=== PATIENT | female | born 1965 | race Two or more races ===

== ENCOUNTER → 2024-09-12 | Outpatient (CLI) | payer BC, SELFPAY ==
[2024-09-12 10:26] LABS: Basophils # (Auto) 0.1 Thou/mm3 (0.0-0.2); Basophils % (Auto) 1 % (0-2.5); Eosinophils # (Auto) 0.1 Thou/mm3 (0.0-0.5); Eosinophils % (Auto) 1 % (0-10); Hematocrit 37.6 % (36.0-46.0); Hemoglobin 12.5 g/dL (12.0-16.0); Immature Granulocytes % (Auto) 0 % (0-0); Immature Granulocytes Auto 0.01 Thou/mm3 (0.00-0.00); Lymphocytes % (Auto) 35 % (10-50); Mean Corpuscular HGB Conc 33.2 g/dl (31.0-37.0); Mean Corpuscular Hemoglobin 27.2 pg (25.0-35.0); Mean Corpuscular Volume 82 fL (80-100); Monocytes # (Auto) 0.5 Thou/mm3 (0.0-0.8); Monocytes % (Auto) 6 % (0-12); Neutrophils # (Auto) 4.7 Thou/mm3 (1.8-7.7); Neutrophils % (Auto) 56 % (37-80); Nucleated Red Blood Cell % 0 /100 WBC (0); Platelet Count 394 Thou/mm3 (140-440); RDW Standard Deviation 38.2 fL (36.4-46.3); White Blood Count 8.3 Thou/mm3 (3.6-11.0)
[2024-09-12 10:33] LABS: Glucose Estimated Average 137 mg/dL (80-131); Hemoglobin A1C 6.4 % Hgb (4.8-6.0)
[2024-09-12 10:48] LABS: Alanine Aminotransferase 24 U/L (10-49); Albumin, Serum 4.7 gm/dL (3.4-4.8); Albumin/Globulin Ratio 1.7 (1.2-2.2); Alkaline Phosphatase 113 U/L (46-116); Anion Gap 10 (7-16); Aspartate Amino Transferase 21 U/L (0-34); BUN/Creatinine Ratio 27 Ratio (12-20); Bilirubin,Total 0.3 mg/dL (0.3-1.2); Blood Urea Nitrogen 19 mg/dL (9-23); Calcium 9.8 mg/dL (8.3-10.6); Calcium (Corrected) 9.8 mg/dL (8.5-10.1); Carbon Dioxide 25.7 mMol/L (20.0-31.0); Chloride 105 mMol/L (98-107); Creatinine (Component) 0.7 mg/dL (0.6-1.3); Globulin 2.7 gm/dL (2.3-3.5); Glucose 113 mg/dL (74-106); Osmolality,Calculated 284 (275-295); Sodium 141 mMol/L (136-145); Total Protein 7.4 gm/dL (5.7-8.2); eGFR > 60 See Note
== END | disposition home or self-care (01) ==
PROVIDERS: PCP Family Medicine; Referring Provider Family Medicine; Visit Provider Family Medicine
DX: M54.31 Sciatica, right side (principal); E11.65 Type 2 diabetes mellitus with hyperglycemia; D50.8 Other iron deficiency anemias
CPT/HCPCS: 36415; 80053; 83036; 85025

== ENCOUNTER 2024-10-04 02:37 | Emergency (ER) | payer BC, SELFPAY ==
[2024-10-04 02:37] VITALS: BMI 25.4
[2024-10-04 02:49] VITALS: BP 121/74; PULSE 85; RESP 16; TEMP 36.8; O2SAT 97
--- NOTE | 2024-10-04 02:49 | PD.EDDIZZY ---
ED Dizzyness RME/HPI General Chief Complaint: Dizziness Stated Complaint: DIZZINESS Time Seen by Provider: 10/04/24 02:49 Arrival date/time: 10/04/24 02:37 RME / HPI RME / HPI Narrative: This section includes all my notes and documentations, including HPI, PE, and ED course. Toñito Dewitt MD HPI: 59yo female with a history of DM presents to the ED for a chief complaint of dizziness x 2 days. 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 Patient endorses having a history of vertigo and takes meclizine, but states she's been taking it without any alleviation of symptoms. She states her dizziness persisted, so she came in for evaluation. She denies any fever, chills, cough or any other associated symptoms. No other complaints reported. ROS: All negative except as documented in HPI. Physical Exam: General: Alert and oriented. Appearance of malaise noted. Eyes: Conjunctivae and lids clear. PERRL. EOMI. ENT: No nasal congestion. Neck: Supple. Heart: RRR. Lungs: No respiratory distress. Good air movement. No rhonchi, wheezing, rales. Abdomen: Soft and nontender. Legs: No clubbing, cyanosis, edema. Skin: Warm and dry. Neuro: Alert and oriented X 3. Cranial nerves II to XII grossly normal. No peripheral motor deficits. I reviewed all diagnostic test results. My interpretation of the EKG is sinus rhythm with no ST?T changes. My review of the head CT report is no acute findings. Blood tests unremarkable. UA showed no bacteria but WBC with no epithelial cells. At this point, diagnoses include vertigo with early UTI. Treatment here included Zofran and meclizine and scopolamine patch. Significant improvement noted. Recommended a trial of outpatient treatment. Based on my best medical judgment, made decision no further evaluation or treatment indicated at this time. Patient understands and agrees to the discharge instructions customized and printed, see below. Discharge instructions from Dr. Dewitt: ? After extensive evaluation, there is no life-threatening condition.? Such as stroke or brain tumor or heart attack. -- Your severe symptoms are due to vertigo.? This is an inner ear problem that makes you feel like you are drunk or seasick.? See attached handout. -- Use scopolamine patch and/or meclizine for your severe symptoms. -- And Zofran for nausea/vomiting.? And increase oral fluid to prevent dehydration.? Maintain clear urine.? If dark or yellow, increase oral fluid. -- And do everything very slowly.? Including moving your head.? And when you sit up or stand up, wait a minute before you progress.? -- Your urine showed no bacteria but white blood cells, so take cefdinir for 3 days. -- See your private doctor on 10/08/2024 if not completely better. -- Seek immediate medical care with worsening or with any concerns. Toñito Dewitt MD Related Data Home Medications ?Medication ?Instructions ?Recorded ?Confirmed Promethazine/Codeine SYRUP * 5 ml PO Q4HR PRN COUGH OR 03/31/17 (PHENERGAN WITH CODEINE SYRUP *) CONGESTION #0 mL Sulfamethoxazole/Trimethoprim 1 tab PO QDAY ##0 03/31/17 (Smz-Tmp Ds) ibuprofen 800 mg tablet 800 mg PO Q8HR PRN PAIN #0 tabs 03/31/17 lorazepam 0.5 mg tablet 0.5 mg PO QDAY Anxiety #0 tabs 04/01/17 Previous Rx's ?Medication ?Instructions ?Recorded diazepam 10 mg tablet (Valium) 10 mg PO BID PRN muscle spasm #20 12/01/21 tabs ibuprofen 600 mg tablet 600 mg PO Q6H #30 tabs 06/17/23 cefdinir 300 mg capsule 300 mg PO BID #6 caps 10/04/24 meclizine 25 mg tablet 25 mg PO BID PRN dizziness #20 tabs 10/04/24 ondansetron 4 mg disintegrating 4 mg PO TID PRN nausea and 10/04/24 tablet vomiting 5 days #10 tabs scopolamine base 1 mg over 3 days 1 mg topical .72 hour PRN 10/04/24 transdermal patch dizziness or vertigo #4 ea Allergies Allergy/AdvReac Type Severity Reaction Status Date / Time No Known Allergies Allergy Verified 10/04/24 02:39 Review of Systems Review of Systems Systems Reviewed: All systems reviewed, normal except as documented Past Medical History Past Medical History CARDIAC: Negative Cardiac Disorders or Congestive Heart Failure RESPIRATORY: Negative Chronic Obstructive Pulmonary Disease (COPD) or Asthma GENITOURINARY: Negative Renal Disease ENDOCRINE: Positive Diabetes Mellitus Type 2; Negative Diabetes Mellitus Type 1 HEMATOLOGIC: Negative Sickle Cell Disease Social History SMOKING STATUS: Never smoker ED Exam Narrative Physical exam: As noted in HPI. Course Quality Measures none Orders Category Date Time Status EKG (ED ONLY) *Do not use* NOW Care 10/04/24 02:[address] head/brain wo con Stat Exams 10/04/24 02:50 Taken EKG (ED Only) Stat Exams 10/04/24 02:50 Ordered CBC Stat Lab 10/04/24 03:44 Completed CMP [Comprehensive Metabolic Panel] Stat Lab 10/04/24 03:44 Completed Magnesium Stat Lab 10/04/24 03:44 Completed TSH [Thyroid Stimulating Hormone] Stat Lab 10/04/24 03:44 Completed Troponin I Stat Lab 10/04/24 03:44 Completed UA, C/S IF [Urinalysis, C/S if Indicated] Stat Lab 10/04/24 04:13 Completed Urine Culture Stat Lab 10/04/24 04:13 Received Meclizine HCl [Antivert] Med 10/04/24 02:50 Discontinued 25 mg PO X1 ONE Ondansetron Odt [Zofran Odt] Med 10/04/24 02:50 Discontinued 4 mg PO X1 ONE Scopolamine [Transderm-Scop Patch] Med 10/04/24 02:50 Discontinued 1 mg TOP X1 ONE Vital Signs Vital signs: Vital Signs Temperature 98.2 F 10/04/24 02:49 Pulse Rate 85 10/04/24 02:49 Respiratory Rate 16 10/04/24 02:49 Blood Pressure 121/74 10/04/24 02:49 Pulse Oximetry (%) 97 10/04/24 02:49 Oxygen Delivery Method Room Air 10/04/24 02:49 Dizziness MDM Narrative MDM Narrative:: Scribe Attestation: 10/04/24 - Nancy Erazo am scribing for and in the presence of Dr. Dewitt. Patient data External records reviewed:: [facility] previous records (Per chart review, patient has no relevant previous ED visits.) Clinical information provided by:: patient Social determinants that could affect healthcare access:: none Patient has the following chronic illnesses:: DM How is presenting disease/condition affected by chronic disease/condition?: uneffected by Evaluation data The following diagnostics were reviewed and interpreted by me:: lab results, radiology exam(s) and EKG tracing(s) (My interpretation of the EKG: NSR (82 bpm) with no ST-T changes. Toñito Dewitt MD) Lab and/or radiology exams considered but not ordered:: none Interpretation Summary: Vertigo Medications / Prescriptions Medications or Prescriptions considered but not ordered:: none Medication administrations:: Medication Administration History Discontinued Medications Meclizine HCl (Meclizine Hcl 25 Mg Tablet) 25 mg PO X1 ONE Stop: 10/04/24 02:51 Last Admin: 10/04/24 03:08 Dose: 25 mg Documented By: CVL Ondansetron HCl (Ondansetron Odt 4 Mg Tabrap) 4 mg PO X1 ONE; Protocol Stop: 10/04/24 02:51 Last Admin: 10/04/24 03:53 Dose: 4 mg Documented By: CVL Scopolamine (Scopolamine 1 Mg Tdsy) 1 mg TOP X1 ONE Stop: 10/04/24 02:51 Last Admin: 10/04/24 03:10 Dose: 1 mg Documented By: CVL Meclizine, Scopolamine, Zofran Consultations Consultation(s) initiated? (list below): No Diagnosis Dizziness Differential Diagnosis: adverse reaction to drug, benign paroxysmal positional vertigo, orthostatic hypotension, vertebral basilar insufficiency, cerebrovascular accident, acute vestibular neuronitis and transient cerebral ischemia Most likely diagnosis given after review of the tests above:: Vertigo Admission Indicated Admission indicated?: not indicated Explain why admission is indicated or not indicated:: No criteria for admission Admission Request Was there a request for admission?: No Disposition Plan Disposition Plan: Discharge Discharge Attestation Discharge Attestation: The patient and all family members were given an opportunity to ask questions and understood the discharge instructions. Discharge instructions specifically effects, indications for sooner follow up or return to the emergency department, and the expected course of current diagnosis. Patient condition: Stable Discharge Plan Plan Patient Disposition: HOME (Self Care) Prescriptions/Referrals Prescriptions/Med Rec: New meclizine 25 mg tablet 25 mg PO BID PRN (Reason: dizziness) Qty: 20 0RF scopolamine base 1 mg over 3 days patch 3 day 1 mg topical .72 hour PRN (Reason: dizziness or vertigo) Qty: 4 0RF ondansetron 4 mg tablet,disintegrating 4 mg PO TID PRN (Reason: nausea and vomiting) 5 Days Qty: 10 0RF cefdinir 300 mg capsule 300 mg PO BID Qty: 6 0RF No Action ibuprofen 800 MG tablet 800 mg PO Q8HR PRN (Reason: PAIN) Qty: 0 Promethazine/Codeine SYRUP * (PHENERGAN WITH CODEINE SYRUP *) 120 ML syrup 5 ml PO Q4HR PRN (Reason: COUGH OR CONGESTION) Qty: 0 Sulfamethoxazole/Trimethoprim (Smz-Tmp Ds) 1 TAB tablet 1 tab PO QDAY Qty: 0 lorazepam 0.5 MG tablet 0.5 mg PO QDAY Qty: 0 diazepam [Valium] 10 mg tablet 10 mg PO BID PRN (Reason: muscle spasm) Qty: 20 0RF ibuprofen 600 mg tablet 600 mg PO Q6H Qty: 30 0RF Referrals: Janet Valdez MD [Primary Care Provider] - In 1 week Problem List Clinical Impression: Vertigo Patient/Caregiver Discharge Instructions Discharge Activity: activity as tolerated Education Materials: ED Vertigo, Unspecified Additional Instructions: Discharge instructions from Dr. Dewitt: ? After extensive evaluation, there is no life-threatening condition.? Such as stroke or brain tumor or heart attack. -- Your severe symptoms are due to vertigo.? This is an inner ear problem that makes you feel like you are drunk or seasick.? See attached handout. -- Use scopolamine patch and/or meclizine for your severe symptoms. -- And Zofran for nausea/vomiting.? And increase oral fluid to prevent dehydration.? Maintain clear urine.? If dark or yellow, increase oral fluid. -- And do everything very slowly.? Including moving your head.? And when you sit up or stand up, wait a minute before you progress.? -- Your urine showed no bacteria but white blood cells, so take cefdinir for 3 days. -- See your private doctor on 10/08/2024 if not completely better. -- Seek immediate medical care with worsening or with any concerns. Print Language: Vincentian Stand Alone Forms: Ann Award Info., Work/School Release, Patient Portal Info Letter
--- NOTE | 2024-10-04 02:50 | XR_ITS ---
Examination: CT brain head without contrast. 2-D sagittal coronal reconstructions Date and time of exam:October 04, 2024 1531 hrs. Indications: Dizziness episodes beginning 2 days ago CTDI: vol (mGy):46.8 DLP: (mGycm):122 Technique: Multiple CT axial sections of the brain have been obtained, 5 mm slice thickness. Contrast has not been administered. 2-D sagittal, coronal reconstructions have been obtained Low dose protocols were performed. One or more of the following dose reduction techniques were used; automated exposure control, adjustment of the mA and/or KV according to patient size, use of iterative reconstruction technique. Findings: No significant ventricular enlargement. Small left temporal lobe calcification Intra-axial or extra-axial hemorrhage density is not seen. No mass effect or midline shift Basal cisterns are not remarkable. Fourth ventricle is midline. Cranial vault intact. Impression: Negative for acute hemorrhage, mass effect or midline shift Advise clinical correlation follow-up accordingly
[2024-10-04] MEDS: MECLIZINE HCL 25 MG TABLET PO (03:08)
[2024-10-04] MEDS: SCOPOLAMINE 1 MG TDSY TOP (03:10)
[2024-10-04 03:50] LABS: Basophils # (Auto) 0.1 Thou/mm3 (0.0-0.2); Basophils % (Auto) 1 % (0-2.5); Eosinophils # (Auto) 0.2 Thou/mm3 (0.0-0.5); Eosinophils % (Auto) 2 % (0-10); Hematocrit 41.7 % (36.0-46.0); Hemoglobin 14.2 g/dL (12.0-16.0); Immature Granulocytes % (Auto) 0 % (0-0); Immature Granulocytes Auto 0.03 Thou/mm3 (0.00-0.00); Lymphocytes # (Auto) 2.7 Thou/mm3 (1.0-4.8); Lymphocytes % (Auto) 32 % (10-50); Mean Corpuscular HGB Conc 34.1 g/dl (31.0-37.0); Mean Corpuscular Hemoglobin 27.7 pg (25.0-35.0); Mean Corpuscular Volume 81 fL (80-100); Monocytes # (Auto) 0.6 Thou/mm3 (0.0-0.8); Monocytes % (Auto) 7 % (0-12); Neutrophils # (Auto) 4.8 Thou/mm3 (1.8-7.7); Neutrophils % (Auto) 58 % (37-80); Nucleated Red Blood Cell % 0 /100 WBC (0); Platelet Count 358 Thou/mm3 (140-440); RDW Standard Deviation 39.5 fL (36.4-46.3); Red Blood Count 5.13 Miln/mm3 (4.00-5.20); White Blood Count 8.3 Thou/mm3 (3.6-11.0)
[2024-10-04] MEDS: ONDANSETRON ODT 4 MG TABRAP PO (03:53)
[2024-10-04 04:10] LABS: Alanine Aminotransferase 23 U/L (10-49); Albumin, Serum 4.6 gm/dL (3.4-4.8); Albumin/Globulin Ratio 1.5 (1.2-2.2); Alkaline Phosphatase 120 U/L (46-116); Anion Gap 1 (7-16); Aspartate Amino Transferase 18 U/L (0-34); BUN/Creatinine Ratio 15 Ratio (12-20); Bilirubin,Total 0.3 mg/dL (0.3-1.2); Blood Urea Nitrogen 12 mg/dL (9-23); Carbon Dioxide 27.5 mMol/L (20.0-31.0); Chloride 108 mMol/L (98-107); Creatinine (Component) 0.8 mg/dL (0.6-1.3); Estimated Creatinine Clearance 62.8 mL/min (>60); Glucose 108 mg/dL (74-106); Osmolality,Calculated 272 (275-295); Potassium 4.4 mMol/L (3.4-5.1); Sodium 136 mMol/L (136-145); Thyroid Stimulating Hormone 1.12 uIU/mL (0.55-4.78); Total Protein 7.6 gm/dL (5.7-8.2); Troponin I < 0.002 ng/mL (0.0-0.045); eGFR > 60 See Note
[2024-10-04 04:26] LABS: Collection Type, Urine Clean Catch; Squamous Epithelial Cell,Urine 0 /hpf (0-5)
--- NOTE | 2024-10-04 04:30 | PRELIM_ITS ---
CT scan of the head without intravenous contrast (axial sections with sagittal and coronal reformats) October 04, 2024 0331 hours Clinical history: Vertigo Comparison: No prior study is available for comparison. Findings: There is no evidence of intracranial hemorrhage, mass effect or midline shift. There are periventricular white matter hypodensities, compatible with chronic small vessel ischemia. There is mild volume loss. There is atheromatous calcification of the intracranial arteries. The calvarium is unremarkable. The mastoid air cells and the visualized paranasal sinuses are clear. Impression: No evidence of intracranial hemorrhage, mass effect or midline shift. Periventricular chronic small vessel ischemia and volume loss. Report Electronically Signed By: Umre Fletcher 10/04/2024 4:30:24 AM [EST]
[2024-10-04 04:36] LABS: Bilirubin,Urine Negative (Negative); Blood,Urine Negative (Negative); Clarity,Urine Clear (Clear/Hazy); Color,Urine Colorless (Lt Yel-Yel); Glucose, Urine Negative (Negative); Ketones,Urine Negative (Negative); Leukocyte Esterase,Urine Positive (Negative); Nitrite,Urine Negative (Negative); Protein,Urine Negative (Neg - Trace); RBC,Urine 1 /hpf (0-3); Specific Gravity,Urine 1.008 (1.001-1.035); Urobilinogen,Urine Negative mg/dL (0.0-1.0); WBC,Urine 11 /hpf (0-5)
[2024-10-04 04:48] LABS: Culture Indicated,Urine Yes
[2024-10-04 05:05] VITALS: RESP 18
== END 2024-10-04 05:05 | disposition home or self-care (01) ==
PROVIDERS: Emergency Provider Emergency Medicine; PCP Family Medicine
DX: R42 Dizziness and giddiness (principal); E11.9 Type 2 diabetes mellitus without complications
CPT/HCPCS: 36415; 70450; 80053; 81001; 83735; 84443; 84484; 85025; 87077; 87086; 87186; 93005; 99284; Q0162; A9270